=== PATIENT | male | born 1995 | race Caucasian/White ===

== ENCOUNTER 2016-09-11 13:40 | Emergency (ER) | payer OTHER ==
[~2016-09-11] VITALS: Ht 170.2 cm; Wt 64.7 kg
[2016-09-11 13:44] VITALS: BP 142/82; PULSE 64; TEMP 36.7; O2SAT 99; Ht 170.2 cm; Wt 64.7 kg
--- NOTE | 2016-09-11 14:00 | EMERGENCY ROOM VISIT NOTE ---
ED Visit Note First contact with patient: 13:46 CHIEF COMPLAINT: Toothache HISTORY OF PRESENT ILLNESS: This 21-year-old male patient presented to the emergency department ambulatory with a progressive toothache for past 1.5 days. The patient states that he previously had a filling in his left lower molar, but it fell out one week ago. He has had a toothache for the past 1.5 days. He describes the pain as aching and constant. The pain is now steady and severe and radiates to the face. The patient has a dentist appointment set up tomorrow. They rate their pain a 7/10. The patient took an [id number] medication which he brought from [place] without relief. Denies facial swelling or fever. The patient denies any discharge from the mouth. REVIEW OF SYSTEMS: A 6 system review of systems was completed with positives and pertinent negatives listed in the HPI. ALLERGIES: No known drug allergies MEDICATIONS: No chronic medications PMH: No significant past medical history. SOCIAL HISTORY: The patient is a [employer] student and lives with roommates. Nonsmoker, denies alcohol use. PHYSICAL EXAM: Vitals are noted on the nurse's note and reviewed by myself. Vital signs stable. Temperature 36.7C orally. GENERAL: This is a 21-year-old male, in no acute distress, nondiaphoretic, well-developed well-nourished. Mouth: The left lower second molar is carious and the previous filling is absent. There is mild swelling of the surrounding gums. The remainder of the pharynx and tonsils are without erythema, edema, or exudate. The airway is patent. There is no facial swelling, cervical or submandibular lymphadenopathy. The patient appears uncomfortable and in pain. The patient has overall [place] dental hygiene. EARS: External auditory canals clear, tympanic membranes pearly booth without erythema or effusion bilaterally. ED COURSE: The patient was evaluated as above. He presents with left lower dental pain. There is no evidence of Richard angina. There is no sign of a drainable abscess. The patient does have some swelling and will be placed on antibiotics to prevent infection. He will be given a short course of pain medication until he sees his dentist tomorrow. He verbalized understanding of my assessment and treatment plan and was discharged home in good condition. Patient was found to be hypertensive and instructed to have this rechecked by [facility] or a primary care provider. DIAGNOSIS: Odontalgia Current/Historical Medications No Active Prescriptions or Reported Meds Allergies Coded Allergies: No Known Allergies (Unverified , 09/11/16) Vital Signs Date Time Temp Pulse Resp B/P Pulse Ox O2 Delivery O2 Flow Rate FiO2 09/11/16 13:44 36.7 64 18 142/82 99 Room Air Departure Information Impression Primary Impression: Dental caries Dispostion Home / Self-Care Condition GOOD Prescriptions Hydrocodone/Acetaminophen 5MG/325MG ([place] 5MG/325MG) Tab 1-2 TABLET PO Q4H Y for Pain, #8 TAB For Initial Treatment Prov: Niru Downing PA-C 09/11/16 Amoxicillin & Pot Clavulanate (Augmentin 875-125 mg) 1 Tab Tab 1 TAB PO BID for 10 Days, #20 TAB Prov: Niru Downing PA-C 09/11/16 Referrals No Doctor, Assigned (PCP) Patient Instructions My [facility] Additional Instructions You have been treated in the Emergency Department for Dental Pain. You have been prescribed [place] to be used for pain control. This is a narcotic medication. You cannot drive or consume alcohol while on this medicine. This medicine should only be used for pain that cannot be controlled with over-the- counter pain medicines. You were prescribed Augmentin to be taken twice daily as prescribed. This is an antibiotic. All antibiotics have the potential to cause diarrhea. Stop this medication and contact a medical provider if you were to develop any significant adverse side effects including: wheezing, shortness of breath, passing out, vomiting, or a diffuse rash. Always take antibiotics as directed and COMPLETE the ENTIRE course regardless of the improvement of your symptoms. For pain control, you can use the following [id number] medicines (if >12 yo): - Regular strength (325mg/tab) Tylenol (acetaminophen) 2 tabs every 4-6 hours as needed. Do not exceed 12 tablets in a 24 hour period. Avoid taking more than 4 grams (4000 mg) of Tylenol per day. This includes any other sources of acetaminophen you may take on a regular basis. - Regular strength (200 mg/tab) Advil (ibuprofen) 1-2 tabs every 4-6 hours as needed. Do not exceed a dose of 3200 mg per day. Refrain from smoking cigarettes or using chewing tobacco until you have been evaluated by your dentist. Keeping beverages lukewarm and consuming soft foods can decrease your pain. Warm compresses over the affected area may offer some relief. You MUST seek evaluation of your dental pain by a dentist following your visit to the Emergency Department. The Emergency Department is not capable of treating dental issues long-term. You should call your dentist as soon as possible to make an appointment for evaluation of your dental pain. Your blood pressure was found to be high today. You need to have this rechecked by your primary care provider or [facility]. Return to the emergency department if you develop the following symptoms despite treatment course outlined above: fever, intractable pain, increased redness, swelling, or purulent discharge.
[2016-09-11] MEDS ORDERED: HYDR-5688 PO (14:02)
[2016-09-11] MEDS ORDERED: AMOX875T PO (14:02)
== END 2016-09-11 14:13 | disposition home or self-care (01) ==
LOC: C.EDB 13:42 → C.EDD 14:13
DX: K02.9 Dental caries, unspecified (principal)

== ENCOUNTER 2017-06-30 19:34 | Emergency (ER) | payer OTHER ==
[~2017-06-30] VITALS: Ht 170.2 cm; Wt 72.8 kg
[2017-06-30 19:38] VITALS: TEMP 36.7; Ht 170.2 cm; Wt 72.8 kg
[2017-06-30] MEDS ORDERED: IBUPROFEN 600 MG TAB PO STA (20:17)
[2017-06-30] MEDS ORDERED: AMOXICILLIN 500 MG CAP PO STA (20:17)
--- NOTE | 2017-06-30 20:32 | EMERGENCY ROOM VISIT NOTE ---
ED Visit Note First contact with patient: 20:05 CHIEF COMPLAINT: Toothache HISTORY OF PRESENT ILLNESS: This 22-year-old male patient presented to the emergency department with a progressive toothache for past 1 month. The patient believes it is coming from left lower molar. The pain is now steady and severe and radiates to the face. The patient does not have a dentist appointment set up yet. They rate their pain a 5/10 and the Tylenol they have been taking has not relieved the pain. Denies facial swelling or fever. The patient denies any discharge from the mouth. REVIEW OF SYSTEMS: A 6 system review of systems was completed with positives and pertinent negatives listed in the HPI. ALLERGIES: No known drug allergies MEDICATIONS: Reviewed PMH: Otherwise healthy SOCIAL HISTORY: He does not smoke or drink alcohol PHYSICAL EXAM: Vitals are noted on the nurse's note and reviewed by myself. Vital signs stable. Temperature 36.7C orally. GENERAL: 22-year-old male, in no acute distress, nondiaphoretic, well-developed well-nourished. Mouth: Left lower molar is moderately carious and fractured and the gum is swollen and tender around it, without any discharge or signs of an abscess. The remainder of the pharynx and tonsils are without erythema, edema, or exudate. The airway is patent. There is no facial swelling, cervical or submandibular lymphadenopathy. The patient appears uncomfortable and in pain. The patient has overall fair dental hygiene. ED COURSE: The patient was seen and examined. He was given Motrin 600 mg and amoxicillin 500 mg p.o. Discharge instructions were reviewed, and he was discharged in good condition DIAGNOSIS: Odontalgia DISCHARGE INSTRUCTIONS & TREATMENT: Please take the entire course of amoxicillin Ibuprofen 600 mg every 6 hours [place] 1-2 tabs every 4 hours for severe pain. Do not drink alcohol or drive while taking this medication. This may be taken with ibuprofen, but avoid Tylenol. This medication may cause constipation Please call the dentist in the morning for a follow-up appointment. A number has been provided Do not hesitate to return to the emergency department with any new, worsening or concerning symptoms; especially, fever, facial swelling or difficulty swallowing This chart was completed in part utilizing [employer] Voice Recognition software. Attempts were made to minimize the grammatical errors, random word insertions, pronoun errors and incomplete sentences. Any formal questions or concerns about the content, text or information contained within the body of this dictation should be directly addressed to the provider for clarification.
[2017-06-30] MEDS ORDERED: HYDR-5688 PO (20:33)
[2017-06-30] MEDS ORDERED: AMOX500C3 PO (20:33)
[2017-06-30 20:49] VITALS: BP 138/87; PULSE 58; O2SAT 98
== END 2017-06-30 20:45 | disposition home or self-care (01) ==
LOC: C.EDB 19:34 → C.EDD 20:45
DX: K02.9 Dental caries, unspecified (principal); K03.81 Cracked tooth